=== PATIENT | male | born 1965 | race Caucasian/White ===

== ENCOUNTER 2021-05-23 14:30 | Emergency (ER) | payer MEDICAID, OTHER ==
[~2021-05-23] VITALS: Ht 175.3 cm; Wt 77.1 kg
[2021-05-23 15:03] VITALS: BP 111/75
== END 2021-05-23 16:35 | disposition home or self-care (01) ==
LOC: ER 14:30
DX: S60.222A Contusion of left hand, initial encounter (principal); I25.2 Old myocardial infarction; F17.210 Nicotine dependence, cigarettes, uncomplicated; Z95.1 Presence of aortocoronary bypass graft; Z88.8 Allergy status to other drugs, medicaments and biological substances; W22.8XXA Striking against or struck by other objects, initial encounter; Y93.89 Activity, other specified; Y92.89 Other specified places as the place of occurrence of the external cause; Y99.8 Other external cause status
CPT/HCPCS: 73130

== ENCOUNTER 2021-05-24 22:11 | Emergency (ER) | payer MEDICAID ==
[~2021-05-24] VITALS: Ht 175.3 cm; Wt 68.0 kg
[2021-05-24 23:58] VITALS: BP 100/69
[2021-05-25] MEDS ORDERED: CLIN300C8 PO (00:05)
== END 2021-05-25 00:19 | disposition home or self-care (01) ==
LOC: ER 22:11
DX: S60.222A Contusion of left hand, initial encounter (principal); F17.210 Nicotine dependence, cigarettes, uncomplicated; X58.XXXA Exposure to other specified factors, initial encounter; Y93.89 Activity, other specified; Y92.89 Other specified places as the place of occurrence of the external cause; Y99.8 Other external cause status